=== PATIENT | male | born 1945 | race Caucasian/White ===

== ENCOUNTER 2016-10-06 10:17 | Emergency (ER) | payer MEDICARE ==
[2016-10-06 11:22] LABS: HEMOGLOBIN 13.8 gm/dl (14.0-17.5); RED BLOOD COUNT 5.25 M/UL (4.20-5.50); WHITE BLOOD COUNT 9.1 K/UL (4.5-11.0)
[2016-10-06 12:03] LABS: BUN/CREATININE RATIO 14 (0-10)
== END 2016-10-06 14:43 | disposition home or self-care (01) ==
LOC: ER1 10:17
PROVIDERS: Physician Assistant
DX: R10.31 Right lower quadrant pain (principal); R11.0 Nausea; I10 Essential (primary) hypertension; J44.9 Chronic obstructive pulmonary disease, unspecified; I25.2 Old myocardial infarction; G25.81 Restless legs syndrome; Z88.5 Allergy status to narcotic agent; Z88.8 Allergy status to other drugs, medicaments and biological substances; Z95.5 Presence of coronary angioplasty implant and graft; Z79.4 Long term (current) use of insulin; Z79.899 Other long term (current) drug therapy
CPT/HCPCS: 36415; 80053; 81001; 82550; 82553; 83690; 83874; 84484; 85025; 93005; 96361; 96374; 96375; 99284; J2270; J2405; J7050; Q9962

== ENCOUNTER 2021-03-31 19:07 | Inpatient (IN) | payer MEDICARE, MEDICAID ==
[~2021-03-31] VITALS: Ht 175.3 cm; Wt 103.9 kg
[2021-03-31 19:43] LABS: HEMOGLOBIN 15.6 gm/dl (14.0-17.5); RED BLOOD COUNT 5.54 M/UL (4.20-5.50); WHITE BLOOD COUNT 9.2 K/UL (4.5-11.0)
[2021-03-31] MEDS ORDERED: AZITHROMYCIN500 MG PO (22:29)
[2021-03-31] MEDS ORDERED: PRAMIPEXOLE DI0.5 MG PO (22:31)
[2021-03-31] MEDS ORDERED: FUROSEMIDE40 MG PO (22:43)
[2021-03-31] MEDS ORDERED: OMEPRAZOLE20 MG PO (22:44)
[2021-03-31] MEDS ORDERED: HYDROCHLOROTHIA25 MG PO (22:45)
[2021-03-31] MEDS ORDERED: POTASSIUM CHLO20 ME1 PO (22:45)
[2021-03-31] MEDS ORDERED: ISORDIL TAB 3030 MG PO (22:46)
[2021-03-31] MEDS ORDERED: MONTELUKAST SOD10 MG PO (22:47)
[2021-03-31] MEDS ORDERED: LOPRESSOR 25 MG25 MG PO (22:47)
[2021-03-31] MEDS ORDERED: PRAVASTATIN SOD20 MG PO (22:48)
[2021-03-31] MEDS ORDERED: CITALOPRAM HBR40 MG PO (22:48)
[2021-03-31] MEDS ORDERED: MELATONIN5 M2 PO (22:49)
[2021-03-31] MEDS ORDERED: HYDROXYZINE HCL50 MG PO (22:50)
[2021-03-31] MEDS ORDERED: ELIQUIS5 MG PO (22:50)
[2021-03-31] MEDS ORDERED: ENTRESTO 24 MG1 EACH PO (22:51)
[2021-04-01 02:43] LABS: HEMOGLOBIN 14.7 gm/dl (14.0-17.5); RED BLOOD COUNT 5.16 M/UL (4.20-5.50); WHITE BLOOD COUNT 7.1 K/UL (4.5-11.0)
[2021-04-01] MEDS ORDERED: ZINC SULFATE50 MG PO (12:56)
[2021-04-01] MEDS ORDERED: NOVOLIN 70100 UNIT/1 SC (12:57)
[2021-04-01] MEDS ORDERED: ALBUTEROL2.5 MG/3 M NEB (12:57)
[2021-04-01] MEDS ORDERED: MULTIPLE VITAM1 EAC1 PO (12:58)
[2021-04-02 02:07] LABS: HEMOGLOBIN 14.6 gm/dl (14.0-17.5); RED BLOOD COUNT 5.27 M/UL (4.20-5.50); WHITE BLOOD COUNT 7.8 K/UL (4.5-11.0)
--- NOTE | 2021-04-03 01:06 | NUR ---
PT CONFUSED AND WALKING OUT INTO THE HALLWAY. HE THINKS HE IS AT HOME. PT PLEASANT AND FOLLOWS DIRECTIONS, GENTLY REORIENTED AND TAKEN BACK TO HIS ROOM. NOTIFIED .
[2021-04-03 03:25] LABS: HEMOGLOBIN 13.9 gm/dl (14.0-17.5); RED BLOOD COUNT 4.99 M/UL (4.20-5.50)
[2021-04-03 03:29] LABS: WHITE BLOOD COUNT 14.5 K/UL (4.5-11.0)
--- NOTE | 2021-04-03 23:25 | NUR ---
PATIENT IS CONFUSED AND PULLING OF HIS GOWN AND MONITORS. REORIENTED AND PT PLACED BACK ON MONITORS. RN SITTING OUTSIDE ROOM TO ENSURE SAFETY AND DECREASE FALL RISK.
--- NOTE | 2021-04-03 23:48 | NUR ---
NOTIFIED DR SEBASTIAN OF PTS RESTLESSNESS AND INABILITY TO REST. HOW HE IS RIPPING MONITORS OFF AND LINES. ORDERS RECIEVED AND PLAED.
--- NOTE | 2021-04-04 00:13 | NUR ---
PT WHEEZING AND RHONCHI HEARD. CALLED RESPIRATORY TO REQUEST A TREATMENT. 02-93% ON 3LNC.
--- NOTE | 2021-04-04 01:16 | NUR ---
PT EXTREMELY RESTLESS, HE IS RUBBING HIS LEGS BACK AND FORTH AGAINST THE BED AND CAUSING REDNESS. PT WILL RESPOND TO VOICE BUT IS CONFUSED AND STILL ATTEMPTING TO REMOVE MONITOR LEADS AND IVS. HR 150S CARDIZEM STARTED PER ORDERS.
--- NOTE | 2021-04-04 02:40 | NUR ---
PT PUT ON BIPAP PER RT, HIS BREATHING SEEMS BETTER AND NOT LABORED. 02 SAT 94 ON 100% ON THE BIPAP. STILL ATTEMPTING TO PULL OUT LINES AND MONITOR ANND BIPAP MASK OFF.
[2021-04-04 03:24] LABS: HEMOGLOBIN 15.1 gm/dl (14.0-17.5)
[2021-04-04 03:29] LABS: RED BLOOD COUNT 5.51 M/UL (4.20-5.50); WHITE BLOOD COUNT 18.2 K/UL (4.5-11.0)
--- NOTE | 2021-04-04 04:27 | NUR ---
SITTER RN AT BEDSIDE PT CONTINUES TO PULL HIS MASK OFF REPEATEDLY. NOTIFIED DR SEBASTIAN AND ANOTHER ORDER FOR HALDOL GIVEN. 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
--- NOTE | 2021-04-04 04:55 | NUR ---
CALLED PTS TO UPDATE HER ABOUT PTS STATUS. VERBALIZES UNDERSTANDING.
[2021-04-04 12:09] LABS: HEMOGLOBIN 15.9 gm/dl (14.0-17.5); RED BLOOD COUNT 5.67 M/UL (4.20-5.50); WHITE BLOOD COUNT 23.9 K/UL (4.5-11.0)
[2021-04-04 16:15] LABS: ORGANISM ID Not indicated. (.); SPECIMEN SOURCE Urine (.); STREPTOCOCCUS PNEUMONIAE AG Negative (Negative)
--- NOTE | 2021-04-04 21:55 | NUR ---
LATE ENTRY 04/03/21 2345 PT BECOMING MORE AND MORE CONFUSED AND IS RIPPING LINES OUT AND MONITOR OFF. ATTEMPTED TO REORIENT PATIENT WITH NO SUCESS. NOTIFIED DR SEBASTIAN AND ORDERS FOR GEODON RECIEVED AND PLACED.
--- NOTE | 2021-04-04 21:57 | NUR ---
LATE ENTRY. 04/04/21 0300 REASSESSMENT AFTER FATMATA. NO IMPROVEMENT. PT CONTINUES TO FIGHT STAFF AND PULL HIS OXYGEN OFF AND LINES OUT. TWO RN'S AT BEDSIDE TO HELP WITH PREVENTING PT FROM INJURING HIMSELF OR PULLING OXYGEN OFF. NOTIFIED DR SEBASTIAN AND ORDER RECIEVED FOR HALDOL 5MG IM. ORDER PLACED AND GIVEN.
--- NOTE | 2021-04-04 22:03 | NUR ---
LATE ENTRY 04/04/21 0630 REPORT AT BEDSIDE TO EDYAT RN. PT CONTINUES TO PULL AT LINES AND HAGER CATH, AND IVS. CALLED LAPPING MACHINE TENDER RN TO REQUEST SITTER FOR DAYSHIFT. PT ON BIPAP AT 100%, HE IS EXTREMELY RESTLESS. DR SEBASTIAN SIGNED RESTRAINT ORDER. GIVEN TO DAYSREBEKAH RN.
[2021-04-05 05:35] LABS: HEMOGLOBIN 16.2 gm/dl (14.0-17.5); RED BLOOD COUNT 5.77 M/UL (4.20-5.50); WHITE BLOOD COUNT 21.1 K/UL (4.5-11.0)
[2021-04-05 05:51] LABS: BUN/CREATININE RATIO 38 (0-10)
--- NOTE | 2021-04-05 10:30 | NUR ---
SPOKE WITH PATIENTS FAMILY (OLY) AND GAVE UPDATE ON PATIENT CONDITION.
[2021-04-05 17:09] LABS: BUN/CREATININE RATIO 31 (0-10)
[2021-04-06 03:47] LABS: RED BLOOD COUNT 5.66 M/UL (4.20-5.50); WHITE BLOOD COUNT 17.6 K/UL (4.5-11.0)
[2021-04-06 04:08] LABS: BUN/CREATININE RATIO 39 (0-10)
[2021-04-07 05:26] LABS: HEMOGLOBIN 14.9 gm/dl (14.0-17.5); RED BLOOD COUNT 5.35 M/UL (4.20-5.50); WHITE BLOOD COUNT 16.5 K/UL (4.5-11.0)
[2021-04-07 05:48] LABS: BUN/CREATININE RATIO 37 (0-10)
[2021-04-08 05:24] LABS: RED BLOOD COUNT 5.66 M/UL (4.20-5.50); WHITE BLOOD COUNT 17.8 K/UL (4.5-11.0)
[2021-04-08 05:36] LABS: BUN/CREATININE RATIO 47 (0-10)
[2021-04-09 05:17] LABS: HEMOGLOBIN 14.5 gm/dl (14.0-17.5); RED BLOOD COUNT 5.23 M/UL (4.20-5.50); WHITE BLOOD COUNT 16.7 K/UL (4.5-11.0)
[2021-04-09 05:46] LABS: BUN/CREATININE RATIO 51 (0-10)
[2021-04-10 04:45] LABS: HEMOGLOBIN 13.7 gm/dl (14.0-17.5); RED BLOOD COUNT 5.16 M/UL (4.20-5.50); WHITE BLOOD COUNT 14.4 K/UL (4.5-11.0)
[2021-04-10 05:10] LABS: BUN/CREATININE RATIO 65 (0-10)
[2021-04-11 05:23] LABS: HEMOGLOBIN 14.2 gm/dl (14.0-17.5); RED BLOOD COUNT 5.16 M/UL (4.20-5.50); WHITE BLOOD COUNT 15.9 K/UL (4.5-11.0)
[2021-04-11 05:51] LABS: BUN/CREATININE RATIO 67 (0-10)
[2021-04-12 04:12] LABS: HEMOGLOBIN 14.4 gm/dl (14.0-17.5); RED BLOOD COUNT 5.13 M/UL (4.20-5.50); WHITE BLOOD COUNT 15.6 K/UL (4.5-11.0)
[2021-04-12 04:28] LABS: BUN/CREATININE RATIO 74 (0-10)
[2021-04-13 04:52] LABS: BUN/CREATININE RATIO 74 (0-10)
[2021-04-13 05:49] LABS: HEMOGLOBIN 13.9 gm/dl (14.0-17.5); RED BLOOD COUNT 4.96 M/UL (4.20-5.50); WHITE BLOOD COUNT 16.6 K/UL (4.5-11.0)
[2021-04-14 05:06] LABS: HEMOGLOBIN 14.2 gm/dl (14.0-17.5); RED BLOOD COUNT 5.34 M/UL (4.20-5.50); WHITE BLOOD COUNT 14.8 K/UL (4.5-11.0)
[2021-04-14 05:37] LABS: BUN/CREATININE RATIO 72 (0-10)
[2021-04-15 05:41] LABS: HEMOGLOBIN 14.9 gm/dl (14.0-17.5); RED BLOOD COUNT 5.45 M/UL (4.20-5.50); WHITE BLOOD COUNT 15.8 K/UL (4.5-11.0)
[2021-04-15 06:00] LABS: BUN/CREATININE RATIO 63 (0-10)
[2021-04-16 05:16] LABS: HEMOGLOBIN 14.1 gm/dl (14.0-17.5); RED BLOOD COUNT 5.13 M/UL (4.20-5.50); WHITE BLOOD COUNT 18.4 K/UL (4.5-11.0)
[2021-04-16 05:46] LABS: BUN/CREATININE RATIO 81 (0-10)
[2021-04-17 08:23] LABS: BUN/CREATININE RATIO 69 (0-10)
[2021-04-17 14:21] LABS: HEMOGLOBIN 14.2 gm/dl (14.0-17.5); RED BLOOD COUNT 5.16 M/UL (4.20-5.50); WHITE BLOOD COUNT 18.5 K/UL (4.5-11.0)
[2021-04-18 06:42] LABS: HEMOGLOBIN 14.1 gm/dl (14.0-17.5); RED BLOOD COUNT 5.14 M/UL (4.20-5.50); WHITE BLOOD COUNT 15.5 K/UL (4.5-11.0)
[2021-04-18 07:04] LABS: BUN/CREATININE RATIO 73 (0-10)
--- NOTE | 2021-04-18 07:49 | NUR ---
PER AM LABS, BG 52. FINGERSTICK BLOOD GLUCOSE 57 UPON RE-CHECK. DEXTROSE 50 GIVEN IVP PER ORDER. GLUCOSE RE-CHECKED IN 15 MINUTES WITH RESULT OF 174. WILL CONTINUE TO MONITOR.
[2021-04-19 05:33] LABS: HEMOGLOBIN 14.1 gm/dl (14.0-17.5); RED BLOOD COUNT 5.18 M/UL (4.20-5.50); WHITE BLOOD COUNT 16.1 K/UL (4.5-11.0)
[2021-04-19 05:48] LABS: BUN/CREATININE RATIO 76 (0-10)
[2021-04-20 05:28] LABS: HEMOGLOBIN 13.5 gm/dl (14.0-17.5); RED BLOOD COUNT 4.91 M/UL (4.20-5.50); WHITE BLOOD COUNT 13.2 K/UL (4.5-11.0)
[2021-04-20 05:43] LABS: BUN/CREATININE RATIO 67 (0-10)
--- NOTE | 2021-04-20 12:56 | NUR ---
PT TAKEN TO CT FOR CT OF HEAD W/O CONTRAST. PLACED ON PORTABLE VENT SUPPORT AND PORTABLE MONITOR. PT TOLERATED WELL. OPENED EYES WITH MOVEMENT BUT WOULD NOT PURPOSFULLY RESPOND.
[2021-04-21 05:52] LABS: BUN/CREATININE RATIO 77 (0-10)
[2021-04-21 05:53] LABS: HEMOGLOBIN 19.3 gm/dl (14.0-17.5); RED BLOOD COUNT 6.97 M/UL (4.20-5.50); WHITE BLOOD COUNT 9.7 K/UL (4.5-11.0)
[2021-04-22 06:37] LABS: BUN/CREATININE RATIO 74 (0-10)
[2021-04-22 07:41] LABS: HEMOGLOBIN 12.6 gm/dl (14.0-17.5); RED BLOOD COUNT 4.62 M/UL (4.20-5.50); WHITE BLOOD COUNT 12.8 K/UL (4.5-11.0)
== END 2021-04-22 16:07 | disposition expired | DRG 207 ==
LOC: ER1 19:07 → CDU 21:04 → PROG CARE 21:04 → CCU 21:04 → PROG CARE 23:53 → CCU 04-04 07:36
PROVIDERS: Emergency Medicine; Internal Medicine; Internal Medicine Critical Care Medicine; Internal Medicine Pulmonary Disease; ADMIT Internal Medicine
PROC: 8E0ZXY6 Isolation (ICD-10-PCS; 2021-03-31)
PROC: XW033E5 Introduction of Remdesivir Anti-infective into Peripheral Vein, Percutaneous Approach, New Technology Group 5 (ICD-10-PCS; 2021-04-01)
PROC: 3E0333Z Introduction of Anti-inflammatory into Peripheral Vein, Percutaneous Approach (ICD-10-PCS; 2021-04-01)
PROC: B24BZZZ Ultrasonography of Heart with Aorta (ICD-10-PCS; 2021-04-01)
PROC: 5A1955Z Respiratory Ventilation, Greater than 96 Consecutive Hours (ICD-10-PCS; 2021-04-04)
PROC: 03HY32Z Insertion of Monitoring Device into Upper Artery, Percutaneous Approach (ICD-10-PCS; 2021-04-04)
PROC: 0BH17EZ Insertion of Endotracheal Airway into Trachea, Via Natural or Artificial Opening (ICD-10-PCS; 2021-04-04)
PROC: 02HV33Z Insertion of Infusion Device into Superior Vena Cava, Percutaneous Approach (ICD-10-PCS; 2021-04-04)
PROC: B548ZZA Ultrasonography of Superior Vena Cava, Guidance (ICD-10-PCS; 2021-04-04)
PROC: 0DH67UZ Insertion of Feeding Device into Stomach, Via Natural or Artificial Opening (ICD-10-PCS; principal; 2021-04-06)
PROC: 3E0G76Z Introduction of Nutritional Substance into Upper GI, Via Natural or Artificial Opening (ICD-10-PCS; principal; 2021-04-06)
DX: U07.1 COVID-19 (principal); J12.82 Pneumonia due to coronavirus disease 2019; J15.9 Unspecified bacterial pneumonia; A41.9 Sepsis, unspecified organism; J80 Acute respiratory distress syndrome; I50.23 Acute on chronic systolic (congestive) heart failure; R65.21 Severe sepsis with septic shock; G93.41 Metabolic encephalopathy; E87.0 Hyperosmolality and hypernatremia; Z99.11 Dependence on respirator [ventilator] status; N17.9 Acute kidney failure, unspecified; I42.8 Other cardiomyopathies; J44.0 Chronic obstructive pulmonary disease with (acute) lower respiratory infection; Z66 Do not resuscitate; E87.70 Fluid overload, unspecified; D72.828 Other elevated white blood cell count; I11.0 Hypertensive heart disease with heart failure; E78.5 Hyperlipidemia, unspecified; J45.909 Unspecified asthma, uncomplicated; T38.0X5A Adverse effect of glucocorticoids and synthetic analogues, initial encounter; D69.6 Thrombocytopenia, unspecified; I25.10 Atherosclerotic heart disease of native coronary artery without angina pectoris; E16.2 Hypoglycemia, unspecified; I48.91 Unspecified atrial fibrillation; Z88.8 Allergy status to other drugs, medicaments and biological substances; Z88.6 Allergy status to analgesic agent; Z79.01 Long term (current) use of anticoagulants; Z87.891 Personal history of nicotine dependence; Z82.49 Family history of ischemic heart disease and other diseases of the circulatory system; Z83.3 Family history of diabetes mellitus; I25.2 Old myocardial infarction; Z51.5 Encounter for palliative care
CPT/HCPCS: ECHO; 31500; 36415; 36600; 70450; 71045; 71250; 80048; 80053; 80162; 80202; 81001; 82550; 82553; 82728; 82803; 82962; 83036; 83605; 83615; 83735; 83874; 83880; 84100; 84132; 84484; 85025; 85027; 85379; 85384; 85610; 85730; 86140; 87040; 87070; 87081; 87086; 87278; 87899; 93005; 93306; 94002; 94003; 94640; 94660; 94664; 94760; 96374; 96375; 99285; A6212; C1751; G0480; J0456; J0610; J0696; J1100; J1160; J1205; J1630; J1644; J1650; J1940; J1956; J2060; J2185; J2250; J2270; J2370; J2405; J2704; J3010; J3370; J3480; J3486; J7030; J7070; U0002